=== PATIENT | female | born 1945 | race Caucasian/White ===

== ENCOUNTER 2022-07-15 09:57 | Inpatient (IN) | payer MEDICARE ==
[2022-07-15 10:51] LABS: #Lymphocytes 1.4 thou/uL (1.20-3.40); #Monocytes 0.5 thou/uL (0.11-0.59); #Neutrophils 5.5 thou/uL (1.40-6.50); %Basophils 0.1 % (0.0-1.0); %Eosinophils 0.1 % (0.0-10.0); %Lymphocytes 18.4 % (21.0-51.0); %Neutrophils 74.4 % (42.0-75.0); Hemoglobin 9.7 g/dL (12.0-16.0); Mean Corpuscular Hemoglobin 25.6 pg (27.0-31.0); Mean Corpuscular Volume 79.9 fl (78.0-98.0); Mean Platelet Volume 8.7 fL (7.4-10.4); Platelet Count 199 10x3/uL (130-400); RBC Distribution Width 20.4 % (11.5-14.5); White Blood Cell (WBC) Count 7.4 10x3/uL (4.8-10.8)
[2022-07-15 11:03] LABS: INR-International Normal Ratio 1.1; Prothrombin Time 15.1 sec (12.0-14.7)
[2022-07-15 11:04] LABS: Albumin 2.4 g/dL (3.4-4.8); PTT 59.6 sec (22.9-36.1)
[2022-07-15 11:05] LABS: Chloride 98 mmol/L (98-107); Potassium 4.3 mmol/L (3.5-5.1); Sodium 129 mmol/L (136-145)
[2022-07-15 11:06] LABS: Calcium 8.1 mg/dL (7.8-10.44)
[2022-07-15 11:07] LABS: Globulin 2.7 g/dL (2.4-3.5); Glucose 83 mg/dL (83-110); Protein, Total 5.1 g/dL (5.8-8.1)
[2022-07-15 11:24] LABS: Anion Gap 13 mmol/L (10-20); Carbon Dioxide 23 mmol/L (23-31)
[2022-07-15 11:25] LABS: Bilirubin, Total 0.4 mg/dL (0.2-1.2)
[2022-07-15 11:26] LABS: Alkaline Phosphatase 79 U/L (40-110); Calc. Creatinine Clearance 0 mL/min (70-130); Estimated GFR 98
[2022-07-15 11:27] LABS: BUN (Urea Nitrogen) 13 mg/dL (9.8-20.1)
[2022-07-15 11:28] LABS: AST (SGOT) 15 U/L (5-34)
[2022-07-15 11:29] LABS: ALT (SGPT) 11 U/L (8-55)
[2022-07-15 11:37] LABS: CKMB 2.3 ng/mL (0-6.6)
[2022-07-15] MEDS ORDERED: Senokot S 8.6-50 MG TAB PO PRN (13:00)
[2022-07-15] MEDS ORDERED: Bisacodyl 5 MG TAB PO PRN (13:00)
[2022-07-15] MEDS ORDERED: Bisacodyl 10 MG SUPP PR PRN (13:00)
[2022-07-15] MEDS ORDERED: Acetaminophen 325 MG TAB PO PRN (13:00)
[2022-07-15] MEDS ORDERED: Communication Order-Pharmacy FS SCH (13:12)
[2022-07-15 14:13] LABS: Hemoglobin 10.1 g/dL (12.0-16.0); Platelet Count 193 10x3/uL (130-400)
[2022-07-15 16:45] VITALS: BMI 16.9
[2022-07-15] MEDS: GoLYTELY 4,000 ml Bottle PO SCH (20:55)
[2022-07-15] MEDS ORDERED: Famotidine 20 MG TAB PO SCH (21:00)
[2022-07-16] MEDS: GoLYTELY 4,000 ml Bottle PO SCH (03:08)
[2022-07-16 04:46] LABS: #Lymphocytes 1.6 thou/uL (1.20-3.40); #Monocytes 0.4 thou/uL (0.11-0.59); #Neutrophils 4.6 thou/uL (1.40-6.50); %Basophils 0.4 % (0.0-1.0); %Eosinophils 0.3 % (0.0-10.0); %Lymphocytes 24.6 % (21.0-51.0); %Monocytes 6.2 % (0.0-10.0); %Neutrophils 68.5 % (42.0-75.0); Hemoglobin 9.6 g/dL (12.0-16.0); Mean Corpuscular HGB CONC 32.5 g/dL (32.0-36.0); Mean Corpuscular Hemoglobin 26.4 pg (27.0-31.0); Mean Corpuscular Volume 81.3 fl (78.0-98.0); Mean Platelet Volume 8.2 fL (7.4-10.4); Platelet Count 228 10x3/uL (130-400); RBC Distribution Width 20.7 % (11.5-14.5); Red Blood Cell (RBC) Count 3.62 mill/uL (4.20-5.40); White Blood Cell (WBC) Count 6.7 10x3/uL (4.8-10.8)
[2022-07-16 05:09] LABS: Anion Gap 14 mmol/L (10-20); BUN (Urea Nitrogen) 14 mg/dL (9.8-20.1); Calc. Creatinine Clearance 67 mL/min (70-130); Calcium 8.5 mg/dL (7.8-10.44); Carbon Dioxide 23 mmol/L (23-31); Chloride 101 mmol/L (98-107); Estimated GFR 99; Glucose 59 mg/dL (83-110); Potassium 5.1 mmol/L (3.5-5.1); Sodium 133 mmol/L (136-145)
[2022-07-16] MEDS ORDERED: Pantoprazole 40 MG VIAL IVP SCH (09:00)
[2022-07-16 11:50] VITALS: BP 99/55; TEMP 97.4
== END 2022-07-16 11:55 | disposition home or self-care (01) | DRG 175 ==
LOC: ERS 09:57 → ERHOLD 12:09 → 2NO 16:18
PROVIDERS: ADMIT Hospitalist; ATTEND Hospitalist
DX: I26.09 Other pulmonary embolism with acute cor pulmonale (principal); R64 Cachexia; Z68.1 Body mass index [BMI] 19.9 or less, adult; K21.9 Gastro-esophageal reflux disease without esophagitis; I27.20 Pulmonary hypertension, unspecified; K52.9 Noninfective gastroenteritis and colitis, unspecified; K31.89 Other diseases of stomach and duodenum; Z85.3 Personal history of malignant neoplasm of breast
CPT/HCPCS: 36415; 80048; 82378; 82553; 83880; 85025; 86301; 93005; 93306; 93970; 96372; 97139; J1650